=== PATIENT | female | born 1965 | race Two or more races ===

== ENCOUNTER → 2016-08-15 | Outpatient (CLI) | payer OTHER ==
[~2016-08-15] MED LIST: NONE PER PT
== END | disposition home or self-care (01) ==
LOC: STAR 13:27
PROVIDERS: ATTEND Obstetrics & Gynecology Female Pelvic Medicine and Reconstructive Surgery
DX: Z02.9 Encounter for administrative examinations, unspecified (principal)

== ENCOUNTER → 2016-11-02 | Outpatient (CLI) | payer OTHER | LOC: STAR 14:04 | PROVIDERS: ATTEND Obstetrics & Gynecology Female Pelvic Medicine and Reconstructive Surgery | DX: Z02.9 Encounter for administrative examinations, unspecified (principal) ==

== ENCOUNTER 2016-11-06 12:33 | Day surgery (SDC) | payer OTHER ==
[2016-11-02 14:32] VITALS: BP 111/56
[~2016-11-06] VITALS: Ht 154.9 cm; Wt 63.0 kg
[~2016-11-06 12:33] MED LIST changes: +BUPIVACAINE/PF 0.25% ONE; +EPINEPHRINE 1 MG/ML, 1ML ONE; +FENTANYL PF 250 MCG/5ML ONE; +MIDAZOLAM 1 MG/ML, 2ML ONE
[2016-11-06] MEDS ORDERED: LACTATED RINGERS 1,000 ML IV SCH (13:01)
[2016-11-06 13:02] VITALS: BP 111/56
[2016-11-06 13:13] LABS: HCG UR OBC PASS
[2016-11-06] MEDS ORDERED: LIDOCAINE 1%, 2ML SQ PRN (13:30)
[2016-11-06] MEDS ORDERED: ROCURONIUM 10 MG/ML ONE (13:33)
[2016-11-06] MEDS ORDERED: CEFAZOLIN 1,000 MG ONE (13:33)
[2016-11-06] MEDS ORDERED: SUCCINYLCHOLINE 20 MG/ML, 10ML ONE (13:33)
[2016-11-06] MEDS ORDERED: SUGAMMADEX 200 MG/2 ML IVPush ONE (13:33)
[2016-11-06] MEDS ORDERED: DEXAMETHASONE 4 MG/ML, 1ML ONE (13:33)
[2016-11-06] MEDS ORDERED: ONDANSETRON 2MG/ML, 2ML ONE (13:33)
[2016-11-06] MEDS ORDERED: PROPOFOL 10 MG/ML, 20ML ONE (13:33)
[2016-11-06] MEDS ORDERED: BUPIVACAINE/PF-EPI 0.25% 1:200K INFIL ONE ×2 (13:45)
[2016-11-06] MEDS ORDERED: OXYcodone 5 MG/5 ML ORAL.SOL UDC PO PRN ×2 (14:00)
[2016-11-06] MEDS ORDERED: HYDROmorphone 1 MG/ML, 1ML IV PRN (14:00)
[2016-11-06] MEDS ORDERED: METOCLOPRAMIDE 5 MG/ML, 2ML IV PRN ×2 (14:00)
[2016-11-06] MEDS ORDERED: ONDANSETRON 2MG/ML, 2ML IVPush PRN ×3 (14:00→18:30)
[2016-11-06] MEDS ORDERED: FENTANYL PF 100 MCG/2ML IV PRN (14:00)
[2016-11-06] MEDS ORDERED: ACETAMINOPHEN 325 MG TABLET PO PRN ×3 (14:00→18:30)
[2016-11-06] MEDS ORDERED: hydrALAzine 20 MG/ML, 1ML IV PRN ×2 (14:00)
[2016-11-06] MEDS ORDERED: LABETALOL 5MG/ML, 20ML IV PRN ×2 (14:00)
[2016-11-06] MEDS ORDERED: ACETAMINOPHEN 650 MG/20.3 ML UDC ONE (15:13)
[2016-11-06] MEDS ORDERED: OXYcodone 5 MG/5 ML ORAL.SOL UDC ONE (15:14)
[2016-11-06] MEDS ORDERED: HYDROmorphone 1 MG/ML, 1ML ONE (15:14)
[2016-11-06] MEDS: HYDROmorphone 1 MG/ML, 1ML IV PRN ×2 (15:19→15:31)
[2016-11-06] MEDS: FENTANYL PF 100 MCG/2ML IV PRN ×2 (15:32→15:45)
[2016-11-06] MEDS ORDERED: FENTANYL PF 100 MCG/2ML ONE (15:42)
[2016-11-06] MEDS ORDERED: ACETAMINOPHEN 650 MG SUPP PR PRN (18:30)
[2016-11-06] MEDS ORDERED: HYDROmorphone 2 MG/ML, 1ML IVPush PRN (18:30)
[2016-11-06] MEDS ORDERED: OXYcodone/APAP 5/325MG TABLET PO PRN (18:30)
[2016-11-06] MEDS ORDERED: ZOLPIDEM 5MG TABLET PO PRN (18:30)
[2016-11-06] MEDS ORDERED: HYDROcodone/APAP 5/325 TABLET PO PRN (18:30)
[2016-11-06] MEDS ORDERED: SIMETHICONE 80 MG CHEW TAB PO SCH (21:00)
[2016-11-06] MEDS ORDERED: IBUPROFEN 600 MG TABLET PO SCH (21:00)
[2016-11-06] MEDS ORDERED: DOCUSATE 100 MG CAPSULE PO SCH (21:00)
== END 2016-11-06 18:50 ==
LOC: OUT 12:33
PROVIDERS: ATTEND Obstetrics & Gynecology Female Pelvic Medicine and Reconstructive Surgery
DX: N87.9 Dysplasia of cervix uteri, unspecified (principal); Z98.890 Other specified postprocedural states; Z90.49 Acquired absence of other specified parts of digestive tract
CPT/HCPCS: 58552; 81025; 88307; J0171; J0330; J0690; J1100; J1170; J2250; J2405; J2704; J3010; J3490; J7120

== ENCOUNTER → 2016-11-29 | Outpatient (CLI) | payer OTHER ==
[~2016-11-29] MED LIST changes: -BUPIVACAINE/PF 0.25% ONE; -EPINEPHRINE 1 MG/ML, 1ML ONE; -FENTANYL PF 250 MCG/5ML ONE; -MIDAZOLAM 1 MG/ML, 2ML ONE
== END | disposition home or self-care (01) ==
LOC: RAD 08:57
DX: M53.3 Sacrococcygeal disorders, not elsewhere classified (principal); E78.5 Hyperlipidemia, unspecified; B97.7 Papillomavirus as the cause of diseases classified elsewhere; R74.0 Nonspecific elevation of levels of transaminase and lactic acid dehydrogenase [LDH]; R87.613 High grade squamous intraepithelial lesion on cytologic smear of cervix (HGSIL); Z80.9 Family history of malignant neoplasm, unspecified
CPT/HCPCS: 72220

== ENCOUNTER → 2017-03-15 | Outpatient (CLI) | payer OTHER | END | disposition home or self-care (01) | LOC: CFH 10:03 | PROVIDERS: ATTEND Obstetrics & Gynecology Female Pelvic Medicine and Reconstructive Surgery | DX: Z12.31 Encounter for screening mammogram for malignant neoplasm of breast (principal) | CPT/HCPCS: G0202 ==